=== PATIENT | male | born 1975 | race Two or more races ===

== ENCOUNTER 2017-01-26 12:13 | Emergency (ER) | payer MEDICAID ==
[~2017-01-26] VITALS: Ht 185.4 cm; Wt 87.0 kg
[~2017-01-26 12:13] MED LIST: ANUCORT-HC RC; ATOR20TA PO; DOCU-150 PO
[2017-01-26] MEDS ORDERED: ACETAMINOPHEN 325MG TABLET PO ONE (14:45)
[2017-01-26 16:20] VITALS: BP 137/78
== END 2017-01-26 16:22 | disposition home or self-care (01) ==
LOC: ER 12:26
DX: S02.2XXA Fracture of nasal bones, initial encounter for closed fracture (principal); R04.0 Epistaxis; Z79.899 Other long term (current) drug therapy; W19.XXXA Unspecified fall, initial encounter; Y93.89 Activity, other specified; Y92.89 Other specified places as the place of occurrence of the external cause; Y99.8 Other external cause status
CPT/HCPCS: 70486; 99284